=== PATIENT | male | born 1970 | race Caucasian/White ===

== ENCOUNTER 2024-04-12 06:30 | Day surgery (SDC) | payer OTHER ==
[2024-04-12] MEDS ORDERED: Propofol 200 MG/20 ML SDV IV ONE (06:31)
[2024-04-12] MEDS ORDERED: Midazolam 1 MG/ML 2 ML SDV IV ONE (06:31)
[2024-04-12] MEDS ORDERED: Lidocaine 2% 100 MG/5 ML Syringe IVPUSH ONE (06:31)
[2024-04-12] MEDS ORDERED: Ketamine 500 mg/10 ML MDV IV ONE (06:31)
[2024-04-12] MEDS ORDERED: Sodium Chloride 0.9% 10 ML Syringe FLUSH PRN (06:45)
[2024-04-12] MEDS: Lactated Ringers 1,000 ML IV SCH (07:43)
[2024-04-12] MEDS: Simethicone Drops 40 MG/0.6 ML 30 ML Bottle ONE (08:30)
== END 2024-04-12 09:40 | disposition home or self-care (01) ==
LOC: FB.SDS 06:30
PROVIDERS: ATTEND Surgery
DX: Z12.11 Encounter for screening for malignant neoplasm of colon (principal); K57.30 Diverticulosis of large intestine without perforation or abscess without bleeding; Z88.0 Allergy status to penicillin
CPT/HCPCS: 00812; A9270; G0121; J2250; J2704; J3490; J7120